=== PATIENT | male | born 1970 ===

== ENCOUNTER 2020-04-06 07:40 | Day surgery (SDC) | payer OTHER ==
[~2020-04-06] VITALS: Ht 188 cm; Wt 94.3 kg
[~2020-04-06 07:40] MED LIST: ANUCORT-HC25 MG RE; DULCOLAX5 MG PO
[2020-04-06 09:36] VITALS: BP 111/65
== END 2020-04-06 09:50 | DRG 379 ==
LOC: ENDO 07:40 → ORM 08:00 → ENDO 08:00
PROVIDERS: ATTEND Surgery
PROC: 0DJD8ZZ Inspection of Lower Intestinal Tract, Via Natural or Artificial Opening Endoscopic (ICD-10-PCS; principal; 2020-04-06)
DX: K57.31 Diverticulosis of large intestine without perforation or abscess with bleeding (principal); K64.8 Other hemorrhoids; Z20.828 Contact with and (suspected) exposure to other viral communicable diseases